=== PATIENT | male | born 1950 | race Caucasian/White ===

== ENCOUNTER → 2019-04-15 | Outpatient (CLI) | payer OTHER ==
--- NOTE | 2019-04-16 15:34 | MRI ---
EXAM DESCRIPTION: Lumbar Spine w/o Contrast : Magnetic Resonance Imaging. CLINICAL HISTORY: RADICULAR SYNDROME OF LOWER LIMBS COMPARISON: None. TECHNIQUE: Multiplanar, multiple standard sequences, non contrast MRI, lumbar spine. FINDINGS: L5-S1: The disc is well visualized on axial T2 series 501, image 3. Disc desiccation and minimal narrowing posterior disc space. Tiny posterior midline bulge. Posterior elements unremarkable. AP canal diameter 10 mm. Bilateral foramina with mild to moderate narrowing. L4-L5: Disc desiccation with tiny posterior midline bulge. Hyperintense T2 annular fissure in the posterior left lateral disc margin abutting the exiting left L4 nerve in the foramen. Minimal flavum ligament thickening. AP canal diameter 11 mm. Disc bulge into the right foramen abutting the right L4 nerve. L3-L4: Minimal disc desiccation with no bulging. Disc space maintained. Stool elements unremarkable. Mild canal narrowing. Bilateral mild foraminal narrowing. L2-L3: Disc desiccation and minimal disc space loss. Bilateral mild hypertrophic facet arthrosis and ligament thickening. Mild canal narrowing. Mild bilateral foraminal narrowing. L1-L2: Normal signal in the disc with disc space preserved. Posterior elements unremarkable. Canal and bilateral foramina are patent. T12-L1: Normal signal in the disc with disc space preserved. Posterior elements unremarkable. Canal and foramina are patent. Conus terminates at this level. No significant scoliosis. Paravertebral soft tissues negative. Distal cord normal signal and caliber. Normal marrow signal in the remaining vertebral bodies and the posterior elements. Vertebral bodies are not compressed at any level. IMPRESSION: 1. L4-L5 disc bulge into the right foramen abutting the exiting right L4 nerve. Annular fissure in the left posterior margin of the disc abutting the exiting left L4 nerve. Moderate canal narrowing 2. Borderline mild central canal stenosis at L5-S1. Tiny posterior midline disc bulge. Mild to moderate narrowing foraminal narrowing bilaterally.. Electronically signed by: Jake Walls MD 04/16/2019 3:32 PM CDT
== END ==
LOC: MRI 10:39
PROVIDERS: ATTEND Anesthesiology
DX: M51.16 Intervertebral disc disorders with radiculopathy, lumbar region (principal); M48.061 Spinal stenosis, lumbar region without neurogenic claudication

== ENCOUNTER → 2019-04-28 | Outpatient (CLI) | payer OTHER ==
--- NOTE | 2019-04-28 14:32 | CT ---
Procedure: CT LUNG SCREENING Exam Date: 04/28/2019. Ordering Provider: MEGAN VALENCIA Clinical Indication: PERSONAL HISTORY OF TOBACCO USE . Cigarette cessation 22 years. 105+ pack years. This patient meets eligibility criteria for low-dose CT lung cancer screening. Comparison: None. Technique: Using a multislice scanner, sequential helical axial imaging was obtained in the thorax, 2.5 mm thickness, 2.5 mm separation, from the level of the thoracic inlet through the lung bases without IV contrast. A low dose protocol was utilized for BMI less than 30: BMI: 27.8. CTDI: 1.76 mGy. 120. kVp. 45 mA. DLP: 69.7 mGy-centimeters. 2D sagittal and coronal reconstructed images, 6.0 mm thickness, were obtained. This exam was performed according to our departmental dose optimization program which includes use of automated exposure control, adjustment of the mA and/or kV according to patient size and/or use of iterative reconstruction technique. Nodule measurements under 10 mm are given as mean value of 3 axes diameters. FINDINGS: Lungs and large airways: Diffuse bilateral thickened septa predominantly in the peripheral lung zones. There is also peripheral groundglass densities and minimal honeycombing bilaterally. Blebs and bulla are seen near the apex abutting the pleura. Pleural parenchymal scarring in the bilateral lower lobes, inferior lingula, and base of the right middle lobe. Minimal amount of bronchiectasis bilaterally bibasilar posterior dependent atelectasis more in the right lower lobe. 5 mm lateral carmen-fissural nodule left major fissure, lateral subpleural, on axial image 2/52. No abnormal nodule and no mass. No focal infiltrate. Pleura and space: Bilateral thickening and thickening of the fissures bilaterally, more on the right major fissure. Mediastinum and fred: evaluation limited by low dose technique and lack of IV contrast. Lymph nodes in the mediastinum not larger than 8 mm greatest diameter. Small nodes also in the bilateral hilar regions. No dominant soft tissue mass. Heart and great vessels: Few calcifications in the proximal brachiocephalic vessels, aortic arch, descending thoracic aorta, and LAD coronary artery. Chest wall, lower neck, axillae: Evaluation also limited by same factors as described above. Normal sized lymph nodes. Upper abdomen: Evaluation limited by low-dose technique. Included peritoneal space with no free air or fluid. Included organs unremarkable. Gallbladder visualized. Osseous structures: Evaluation limited by low dose MIP technique. Minimal spondylosis of the thoracic spine. No lytic or blastic lesions. IMPRESSION: 1. Diffuse interstitial lung disease bilaterally with bronchiectasis. Normal size of a perifissural nodule on the left. No abnormal nodules, no masses. No focal infiltrates.. [facility] Best Practice Recommendations: please see below for Lung RADS category and FOLLOW-UP.* *Lung RADS category Category 1 - No nodule or definitely benign nodules (probability of malignancy less than 1%). Follow-up: Continue annual screening with Low Dose Chest CT in 12 months. Electronically signed by: Jake Walls MD 04/28/2019 2:30 PM CDT
== END ==
LOC: CT 09:00
PROVIDERS: ATTEND Emergency Medicine
DX: Z87.891 Personal history of nicotine dependence (principal); J84.9 Interstitial pulmonary disease, unspecified; J47.9 Bronchiectasis, uncomplicated

== ENCOUNTER → 2020-04-20 | Outpatient (CLI) | payer OTHER ==
--- NOTE | 2020-04-23 17:53 | CT ---
Procedure: CT LUNG SCREENING Exam Date: April 20, 2020. Ordering Provider: PHYSICIAN UNKNOWN Clinical Indication: NICOTINE DEPENDENCE smoking cessation x 23 years. Approximately 105 pack years. This patient meets eligibility criteria for low-dose CT lung cancer screening. Comparison: Low-dose CT lung cancer screening examination March 2019. Technique: Using a multislice scanner, sequential helical axial imaging was obtained in the thorax, 2.5 mm thickness, 2.5 mm separation, from the level of the thoracic inlet through the lung bases without IV contrast. A low dose protocol was utilized for BMI less than 30: BMI: 29. CTDI: 1.76 mGy. 120. kVp. 45 mA. DLP 59 mGy-cm. 2D sagittal and coronal reconstructed images, 6.0 mm thickness, were obtained. This exam was performed according to our departmental dose optimization program which includes use of automated exposure control, adjustment of the mA and/or kV according to patient size and/or use of iterative reconstruction technique. Nodule measurements under 10 mm are given as mean value of 3 axes diameters. FINDINGS: Lungs and large airways: Dilated airspaces and bilateral subpleural tree-in-bud densities, pulmonary blebs, and thickened septa. Similar process seen on the prior study. Paraseptal type emphysema. Bilateral perihilar peribronchial wall cuffing. Bilateral groundglass nodules 5 mm or less in the upper lobes. Pleural parenchymal scarring more severe in the right lower lobe in the left. Also pleural parenchymal scarring in the base of the right middle lobe and in the inferior lingula. Stable bilateral perifissural nodule associated with the left major fissure and subpleural location on axial series 2, image 42. No abnormal nodules and no mass. No new or focal infiltrate.. Pleura and space: Bilateral thickening diffuse and focal with focal area on the lateral right upper lobe abutting the right major fissure stable. No acute or new process. Mediastinum and fred: evaluation limited by low dose technique and lack of IV contrast. Small nodes but no dominant soft tissue mass. No interval change. Heart and great vessels: Coronary artery and aortic calcifications. Stable. Chest wall, lower neck, axillae: Evaluation also limited by same factors as described above. Negative. Upper abdomen: Evaluation limited by low-dose technique. No free air or free fluid in the included peritoneal space. Fatty infiltration of the pancreas. Included spleen is unremarkable. Osseous structures: Evaluation limited by low dose MIP technique. Stable spondylosis thoracic spine. Shoulder sternoclavicular arthrosis stable. IMPRESSION: Paraseptal emphysema is moderate. Chronic bilateral subpleural scarring and tree-in-bud densities with thickened bronchial romero can be seen with chronic bronchitis. No interval change. Subclinical groundglass nodules in the upper lobes are stable. No new nodules or mass.. [facility] Best Practice Recommendations: please see below for Lung RADS category and FOLLOW-UP.* *Lung RADS category Category 1 - No nodule or definitely benign nodules (probability of malignancy less than 1%). Follow-up: Continue annual screening with Low Dose Chest CT in 12 months. Electronically signed by: Jake Walls MD 04/23/2020 5:52 PM CDT
== END ==
LOC: CT 13:11
PROVIDERS: ATTEND Emergency Medicine
DX: Z12.2 Encounter for screening for malignant neoplasm of respiratory organs (principal); J43.9 Emphysema, unspecified; J98.4 Other disorders of lung; R91.8 Other nonspecific abnormal finding of lung field; Z87.891 Personal history of nicotine dependence